=== PATIENT | female | born 1975 | race Caucasian/White ===

== ENCOUNTER 2023-01-21 13:32 | Emergency (ER) | payer OTHER ==
[~2023-01-21] VITALS: Ht 160 cm; Wt 108.9 kg
[2023-01-21 13:55] LABS: BASO % 0.3 % (0.0-1.0); EOS # 0.1 10*3/uL (0.0-0.4); EOS % 0.6 % (1.0-4.0); LYMPH # 4.3 10*3/uL (1.3-4.4); LYMPH % 28.6 % (27.0-41.0); MEAN CELL VOLUME 89.2 fl (81.0-99.0); MEAN CORPUSCULAR HGB 30.5 pg (27.0-31.0); MEAN CORPUSCULAR HGB CONC 34.2 g/dl (33.0-37.0); MEAN PLATELET VOLUME 8.2 fl (9.6-12.3); MONO # 1.1 10*3/uL (0.1-1.0); MONO % 7.6 % (3.0-9.0); NEUT # 9.4 10*3/uL (2.3-7.9); NEUT % 62.4 % (47.0-73.0); PLATELET COUNT AUTOMATED 466 10*3/uL (130-400); RED BLOOD COUNT 4.82 10*6/uL (4.10-5.10); RED CELL DISTRI WIDTH 12.8 % (0-14.5); WHITE BLOOD COUNT 15.1 10*3/uL (4.8-10.8)
[2023-01-21 14:06] LABS: ACT PARTIAL THROMBO TIME 29.4 SECONDS (20.0-32.1)
[2023-01-21 14:20] LABS: ALKALINE PHOSPHATASE 112 U/L (46-116); CHLORIDE 110 mmol/L (98-107); POTASSIUM 3.9 mmol/L (3.4-5.1); SGPT/ALT 27 U/L (5-49); TOTAL PROTEIN 7.3 gm/dL (6.0-8.0)
[2023-01-21 14:22] LABS: BUN < 5 mg/dl (9-23)
[2023-01-21 15:06] LABS: LIPASE 31 U/L (12-53)
[2023-01-21 15:07] LABS: B-hCG (QUALITATIVE) NEGATIVE (NEGATIVE)
[2023-01-21] MEDS ORDERED: NASA MIST SALIN75 ML NAS (16:41)
[2023-01-21] MEDS ORDERED: PREDNISONE50 MG PO (16:41)
[2023-01-21] MEDS ORDERED: SEPTDS PO (16:41)
[2023-01-21] MEDS ORDERED: FLONASE ALLERG9.9 ML NAS (16:41)
[2023-01-21] MEDS ORDERED: PROVENTIL HFA6.7 GM INH (16:43)
[2023-01-21] MEDS ORDERED: FLOVENT HFA12 GM INH (16:43)
[2023-01-21] MEDS ORDERED: ALBUTEROL2.5 MG/0.5 INH (16:43)
== END 2023-01-21 16:52 | disposition home or self-care (01) ==
LOC: ED 13:32
PROVIDERS: Family Medicine
DX: R09.1 Pleurisy (principal); R05.9 Cough, unspecified; K21.9 Gastro-esophageal reflux disease without esophagitis; M54.9 Dorsalgia, unspecified; R11.0 Nausea; J32.9 Chronic sinusitis, unspecified; Z88.1 Allergy status to other antibiotic agents; Z91.040 Latex allergy status; Z90.49 Acquired absence of other specified parts of digestive tract; Z90.89 Acquired absence of other organs; F17.290 Nicotine dependence, other tobacco product, uncomplicated

== ENCOUNTER 2023-04-10 18:39 | Emergency (ER) | payer OTHER ==
[~2023-04-10] VITALS: Ht 162.5 cm; Wt 113.4 kg
[~2023-04-10 18:39] MED LIST: ALBUTEROL2.5 MG/0.5 INH; FLONASE ALLERG9.9 ML NAS; FLOVENT HFA12 GM INH; NASA MIST SALIN75 ML NAS; PREDNISONE50 MG PO; PROVENTIL HFA6.7 GM INH; SEPTDS PO
[2023-04-10 19:20] LABS: HEMATOCRIT 42.7 % (37.0-47.0); MEAN CELL VOLUME 91.2 fl (81.0-99.0); MEAN CORPUSCULAR HGB 30.1 pg (27.0-31.0); MEAN PLATELET VOLUME 8.3 fl (9.6-12.3); PLATELET COUNT AUTOMATED 398 10*3/uL (130-400); RED BLOOD COUNT 4.68 10*6/uL (4.10-5.10); RED CELL DISTRI WIDTH 12.5 % (0-14.5); WHITE BLOOD COUNT 15.3 10*3/uL (4.8-10.8)
[2023-04-10 19:21] LABS: MANUAL DIFF REFLEX YES
[2023-04-10 19:35] LABS: BUN 11 mg/dl (9-23); CHLORIDE 111 mmol/L (98-107); LIPASE 27 U/L (12-53); POTASSIUM 3.5 mmol/L (3.4-5.1)
[2023-04-10 19:43] LABS: BASOPHILS 1 % (0-1); PLATELET SUFFICIENCY NORMAL (NORMAL); TOTAL CELLS COUNTED 100 #CELLS
[2023-04-10] MEDS ORDERED: Lidocaine Hydrochloride 15 ML UDC PO STA (20:03)
[2023-04-10] MEDS ORDERED: Dicyclomine Hydrochloride 20 MG/10 ML OSYR PO STA (20:03)
[2023-04-10] MEDS ORDERED: PROTONIX40 MG PO (20:03)
[2023-04-10] MEDS ORDERED: MG-AL HYDROXIDE/SIMETICONE 30 ML UDC PO STA (20:03)
== END 2023-04-10 21:52 | disposition home or self-care (01) ==
LOC: ED 18:39
PROVIDERS: Internal Medicine
DX: K21.9 Gastro-esophageal reflux disease without esophagitis (principal); Z88.1 Allergy status to other antibiotic agents; Z90.89 Acquired absence of other organs; Z90.49 Acquired absence of other specified parts of digestive tract; Z98.890 Other specified postprocedural states